=== PATIENT | female | born 1980 | race Caucasian/White ===

== ENCOUNTER 2016-12-20 16:09 | Emergency (ER) | payer MEDICAID, OTHER ==
[~2016-12-20] VITALS: Ht 152.4 cm; Wt 58.5 kg
[~2016-12-20 16:09] MED LIST: ACET325T33 PO; HYDR-3498 PO
[2016-12-20 16:14] VITALS: Ht 152.4 cm; Wt 58.5 kg
[2016-12-20 18:56] LABS: ADD SCAN DIFF NO
[2016-12-20 18:58] LABS: BASOPHILS % 0.4 % (0.0-2.0); EOSINOPHILS # 0.1 10^3/ul (0.0-0.5); HEMATOCRIT 37.6 % (37.0-47.0); HEMOGLOBIN 12.7 g/dl (12.0-16.0); LYMPHOCYTES # 1.8 10^3/ul (0.8-2.9); LYMPHOCYTES % 18.6 % (15.0-51.0); MEAN CORPUSCULAR HEMOGLOBIN 29.3 pg (29.0-33.0); MEAN CORPUSCULAR HGB CONC 33.8 g/dl (32.0-37.0); MEAN CORPUSCULAR VOLUME 86.6 fl (82.0-101.0); MEAN PLATELET VOLUME 11.4 fl (7.4-10.4); MONOCYTE # 0.7 10^3/ul (0.3-0.9); NEUTROPHIL # 7.2 10^3/ul (1.6-7.5); NEUTROPHILS % 72.7 % (39.0-77.0); PLATELET COUNT 249 10^3/UL (140-415); RED BLOOD COUNT 4.34 10^6/ul (4.20-5.40); RED CELL DISTRIBUTION WIDTH 13.1 % (11.5-14.5); WHITE BLOOD COUNT 9.9 10^3/ul (4.8-10.8)
--- NOTE | 2016-12-20 19:03 | RADRPT ---
PROCEDURE: OBSTETRICAL ULTRASOUND WITH ENDOVAGINAL IMAGES CLINICAL INDICATION: Vaginal Bleed () TECHNIQUE: Multiple sonographic images of the pelvis were obtained utilizing a transabdominal and endovaginal technique. The images were reviewed on a PACS workstation. COMPARISON: None LMP: 10/27/2016 FINDINGS: There is a single live intrauterine with heart rate of 165 beats per minute, mean sa c diameter of 2.51 cm, yolk sac, and crown-rump length of 1.14 cm which is consistent with a gestati onal age of 7 weeks, 3 days . The estimated date of delivery by ultrasound is 08/05/2017 . The estimated gestational age by LMP is 7 weeks, 5 days . The estimated date of delivery by LMP is 08/03/2017 . The right ovary is not visualized. The left ovary measures 3.0 x 1.8 x 2.0 cm. There is normal vascu lar flow in the left ovary. No significant ovarian lesions are seen. No significant pelvic free fluid is identified. IMPRESSION: Single live intrauterine consistent with a gestational age of 7 weeks, 3 days . The estimated date of delivery is 08/05/2017 . Dating by ultrasound is within 2 days of dating by LMP. No subchorionic hemorrhage is identified. Nonvisualization of the right ovary. RPTAT: EE Physician Isaac Date Time Electronically viewed and signed by Physician Isaac on 12/20/2016 19:03 /
[2016-12-20 19:34] LABS: ADD UMIC YES; UR ASCORBIC ACID NEGATIVE (NEGATIVE); UR BACTERIA MANY /HPF (NONE SEEN); UR BILIRUBIN (Dip) NEGATIVE (NEGATIVE); UR BLOOD (Dip) 2+ mg/dL (NEGATIVE); UR CLARITY SLIGHTLY CLOUDY (CLEAR); UR COLOR STRAW (YELLOW); UR GLUCOSE (Dip) NEGATIVE (NEGATIVE); UR KETONES (Dip) NEGATIVE (NEGATIVE); UR LEUKOCYTE ESTERASE (Dip) TRACE Leu/ul (NEGATIVE); UR NITRITE (Dip) NEGATIVE (NEGATIVE); UR RBC 0 /HPF (0-5); UR SPECIFIC GRAVITY (Dip) 1.006 (1.003-1.030); UR SQUAMOUS EPITHELIAL CELL FEW /HPF (FEW); UR TOTAL PROTEIN (Dip) NEGATIVE (NEGATIVE); UR UROBILINOGEN (Dip) NEGATIVE (NEGATIVE)
[2016-12-20] MEDS ORDERED: CEPHALEXIN 500 MG CAP PO STA (20:07)
[2016-12-20] MEDS ORDERED: CEPH-443 PO (20:08)
--- NOTE | 2016-12-21 00:50 | ERD ---
ER Documentation Chief Complaint Date/Time DATE: 12/21/16 TIME: 00:45 Chief Complaint VAG BLEED , 7 WEEKS PREG HPI This is a 36-year-old female A2 miscarriages states that she is 7 weeks last menstrual period October 27 stating that she has mild vaginal bleeding that started today when she wipes. She admits to mild pelvic pain. She denies any fevers, dysuria, nausea, vomiting or diarrhea. ROS All systems reviewed and are negative except as per history of present illness. Medications Home Meds Active Scripts Cephalexin* (Keflex*) 500 Mg Capsule, 500 MG PO TID for 7 Days, CAP Prov:BAILEY CASON PA-C 12/20/16 Hydrocodone Bit-Acetaminophen* ([place]*) 5-325 Mg Tab, 1 TAB PO Q6 Y for PAIN, # 10 TAB Prov:DELON MEJÍA PA-C 10/31/15 Acetaminophen* (Tylenol*) 325 Mg Tablet, 1 TAB PO Q6 Y for PAIN AND OR ELEVATED TEMP, #20 TAB Prov:AMAURI SAMUEL PA-C 10/11/15 Allergies Allergies: Coded Allergies: No Known Allergy (Verified Allergy, Unknown, 07/14/08) PMhx/Soc Medical and Surgical Hx: pt denies Medical Hx, pt denies Surgical Hx History of Surgery: No Anesthesia Reaction: No Hx Neurological Disorder: No Hx Respiratory Disorders: No Hx Cardiac Disorders: No Hx Psychiatric Problems: No Hx Miscellaneous Medical Probl: No Hx Alcohol Use: No Hx Substance Use: No Hx Tobacco Use: No Smoking Status: Never smoker Physical Exam Vitals Vital Signs Date Time Temp Pulse Resp B/P Pulse Ox O2 Delivery O2 Flow Rate FiO2 12/20/16 16:14 98.1 68 18 118/65 98 Physical Exam General: well-developed/well-nourished, in no apparent distress, non-toxic appearing HENT: NC/AT Eyes: Conjunctiva normal Neck: Supple Pulm: CTA bilaterally, normal breathing CV: Normal S1S2 GI: Soft, non-distended, normal bowel sounds, TTP on suprapubic region Back: No midline tenderness, no masses, No CVAT Ext: No clubbing, cyanosis, or edema Neuro: Alert and orientated Skin: intact, normal turgor Psych: Normal mood and mentation Result Diagram: 12/20/16 1846 Results 24 hrs Laboratory Tests Test 12/20/16 18:46 White Blood Count 9.910^3/ul Red Blood Count 4.3410^6/ul Hemoglobin 12.7g/dl Hematocrit 37.6% Mean Corpuscular Volume 86.6fl Mean Corpuscular Hemoglobin 29.3pg Mean Corpuscular Hemoglobin Concent 33.8g/dl Red Cell Distribution Width 13.1% Platelet Count 73694^3/UL Mean Platelet Volume 11.4fl Neutrophils % 72.7% Lymphocytes % 18.6% Monocytes % 7.0% Eosinophils % 1.0% Basophils % 0.4% Nucleated Red Blood Cells % 0.0/100WBC Neutrophils # 7.210^3/ul Lymphocytes # 1.810^3/ul Monocytes # 0.710^3/ul Eosinophils # 0.110^3/ul Basophils # 0.010^3/ul Nucleated Red Blood Cells # 0.010^3/ul Urine Color STRAW Urine Clarity SLIGHTLY CLOUDY Urine pH 8.0 Urine Specific [place] 1.006 Urine Ketones NEGATIVEmg/dL Urine Nitrite NEGATIVEmg/dL Urine Bilirubin NEGATIVEmg/dL Urine Urobilinogen NEGATIVEmg/dL Urine Leukocyte Esterase TRACELeu/ul Urine Microscopic RBC 0/HPF Urine Microscopic WBC 4/HPF Urine Squamous Epithelial Cells FEW/HPF Urine Bacteria MANY/HPF Urine Hemoglobin 2+mg/dL Urine Glucose NEGATIVEmg/dL Urine Total Protein NEGATIVEmg/dl Beta HCG, Quantitative 657806.0mIU/ml Current Medications Medications (Trade) Dose Ordered Sig/[place] Route PRN Reason Start Time Stop Time Status Last Admin Dose Admin Cephalexin (Keflex) 500 mg ONCE STAT PO 12/20/16 20:07 12/20/16 20:08 DC 12/20/16 20:12 Procedures/MDM This is a 36-year-old female who is A2 miscarriages sitting at 7 weeks last menstrual period October 27 stating that she has mild vaginal bleeding that started today with mild pelvic pain likely due to a urinary tract infection. Lab work was done in the ED, there is no evidence of leukocytosis or anemia. Patient's beta-hCG level was within normal limits. Urinalysis was positive for urinary tract infection. Patient was given Keflex in the ED and a prescription for outpatient. OB ultrasound was done and radiologist stated Single live intrauterine consistent with a gestational age of 7 weeks , 3 days . The estimated date of delivery is 08/05/2017 . Dating by ultrasound is within 2 days of dating by LMP. No subchorionic hemorrhage is identified. Nonvisualization of the right ovary. Patient stable to be discharged home to follow-up with primary care physician and TEXTILE MACHINE OPERATOR. Discussed return the ER for any worsening symptoms. She understands and agrees with plan Departure Diagnosis: Primary Impression: Vaginal bleeding in patient at less than 20 weeks ges... Additional Impression: UTI (urinary tract infection) during Condition: Stable Patient Instructions: Understanding Urinary Tract Infections (UTIs), Bleeding During Early Additional Instructions: FOLLOW UP WITH YOUR PRIMARY CARE PHYSICIAN TOMORROW.Return to this facility if you are not improving as expected. Take all medicines as directed. Return to this facility if you are not improving as expected. BAILEY CASON PA-C Dec 21, 2016 00:50
== END 2016-12-20 20:23 | disposition home or self-care (01) ==
LOC: FTE 16:09
DX: O20.9 Hemorrhage in early pregnancy, unspecified (principal); O23.41 Unspecified infection of urinary tract in pregnancy, first trimester; R10.2 Pelvic and perineal pain; Z3A.01 Less than 8 weeks gestation of pregnancy
CPT/HCPCS: 36415; 76801; 81001; 84702; 85025; 86900; 86901

== ENCOUNTER 2017-01-29 09:42 | Emergency (ER) | payer OTHER ==
[~2017-01-29] VITALS: Ht 152.4 cm; Wt 59.0 kg
[~2017-01-29 09:42] MED LIST changes: +ACET500C5 PO; +CEPH-443 PO; +PRENAT PO
[2017-01-29 09:52] VITALS: Ht 152.4 cm; Wt 59.0 kg
[2017-01-29 12:13] LABS: BASOPHILS % 0.4 % (0.0-2.0); EOSINOPHILS # 0.1 10^3/ul (0.0-0.5); EOSINOPHILS % 0.9 % (0.0-7.0); HEMATOCRIT 32.3 % (37.0-47.0); HEMOGLOBIN 11.1 g/dl (12.0-16.0); LYMPHOCYTES # 1.7 10^3/ul (0.8-2.9); LYMPHOCYTES % 15.3 % (15.0-51.0); MEAN CORPUSCULAR HEMOGLOBIN 29.5 pg (29.0-33.0); MEAN CORPUSCULAR HGB CONC 34.4 g/dl (32.0-37.0); MEAN CORPUSCULAR VOLUME 85.9 fl (82.0-101.0); MEAN PLATELET VOLUME 11.5 fl (7.4-10.4); MONOCYTE # 0.8 10^3/ul (0.3-0.9); MONOCYTES % 7.6 % (0.0-11.0); NEUTROPHILS % 75.3 % (39.0-77.0); PLATELET COUNT 238 10^3/UL (140-415); RED BLOOD COUNT 3.76 10^6/ul (4.20-5.40); RED CELL DISTRIBUTION WIDTH 13.2 % (11.5-14.5); WHITE BLOOD COUNT 11.1 10^3/ul (4.8-10.8)
--- NOTE | 2017-01-29 12:13 | ERA ---
ER Documentation Chief Complaint Date/Time DATE: 01/29/17 TIME: 12:08 Chief Complaint 14 WEEKS PREG, VAG BLEEDING, LOWER PELVIC PAIN HPI This is an otherwise healthy 36-year-old female, , who is a 13 weeks presenting with a chief complaint of vaginal bleeding 12 hours. Patient has 2 spontaneous abortions in the past. Patient denies any pain, fever , chills, discomfort. Quantifies of bleeding as if she coughs without chunks. Had similar symptoms 2 weeks ago was evaluated by SLEEVE PRESSER OPERATOR and stated that there was some blood on the ultrasound but nothing to be concerned of. Patient has no other complaints and describes no other associated manifestations. Nursing notes have been reviewed and are consistent with history given. No other complications with . ROS All systems reviewed and are negative except as per history of present illness. Medications Home Meds Active Scripts Multivit/Min/Fol Ac/Iron/Pren* ( S*) 1 Tab Tab, 1 TAB PO DAILY, #30 TAB Prov:HAYLEE SHAWAR F 01/22/17 Cephalexin* (Keflex*) 500 Mg Capsule, 500 MG PO TID for 7 Days, CAP Prov:PASILABAN,HAYLEEAR F 01/22/17 Acetaminophen* (Tylophen*) 500 Mg Capsule, 1 CAP PO Q6H Y for PAIN AND OR ELEVATED TEMP, #20 CAP Prov:PASILABANHAYLEEAR F 01/22/17 Cephalexin* (Keflex*) 500 Mg Capsule, 500 MG PO TID for 7 Days, CAP Prov:BAILEY CASON PA-C 12/20/16 Hydrocodone Bit-Acetaminophen* ([place]*) 5-325 Mg Tab, 1 TAB PO Q6 Y for PAIN, # 10 TAB Prov:DELON MEJÍA PA-C 10/31/15 Acetaminophen* (Tylenol*) 325 Mg Tablet, 1 TAB PO Q6 Y for PAIN AND OR ELEVATED TEMP, #20 TAB Prov:AMAURI SAMUEL PA-C 10/11/15 Allergies Allergies: Coded Allergies: No Known Allergy (Verified , 01/21/17) PMhx/Soc Medical and Surgical Hx: pt denies Medical Hx, pt denies Surgical Hx History of Surgery: No Anesthesia Reaction: No Hx Neurological Disorder: No Hx Respiratory Disorders: No Hx Cardiac Disorders: No Hx Psychiatric Problems: No Hx Miscellaneous Medical Probl: No Hx Alcohol Use: No Hx Substance Use: No Hx Tobacco Use: No Smoking Status: Never smoker Physical Exam Vitals Vital Signs Date Time Temp Pulse Resp B/P Pulse Ox O2 Delivery O2 Flow Rate FiO2 01/29/17 09:52 98.2 77 16 113/57 99 Physical Exam Const: Well-appearing 36-year-old female no acute distress Head: Atraumatic Eyes: Normal Conjunctiva ENT: Normal External Ears, Nose and Mouth. Neck: Full range of motion..~ No meningismus. Resp: Clear to auscultation bilaterally Cardio: Regular rate and rhythm, no murmurs Abd: Fetus unable to be palpated.Soft, non tender, non distended. Normal bowel sounds Skin: No petechiae or rashes Back: No midline or flank tenderness Ext: No cyanosis, or edema Neur: Awake and alert Psych: Normal Mood and Affect Result Diagram: 01/29/17 1138 01/29/17 1138 Results 24 hrs Laboratory Tests Test 01/29/17 11:36 01/29/17 11:38 Urine Color YELLOW Urine Clarity CLOUDY Urine pH 6.0 Urine Specific [place] 1.021 Urine Ketones NEGATIVEmg/dL Urine Nitrite NEGATIVEmg/dL Urine Bilirubin NEGATIVEmg/dL Urine Urobilinogen NEGATIVEmg/dL Urine Leukocyte Esterase NEGATIVELeu/ul Urine Microscopic RBC 13/HPF Urine Microscopic WBC 12/HPF Urine Squamous Epithelial Cells FEW/HPF Urine Amorphous Crystals FEW/HPF Urine Bacteria FEW/HPF Urine Mucus FEW/HPF Urine Hemoglobin 3+mg/dL Urine Glucose NEGATIVEmg/dL Urine Total Protein 1+mg/dl White Blood Count 11.110^3/ul Red Blood Count 3.7610^6/ul Hemoglobin 11.1g/dl Hematocrit 32.3% Mean Corpuscular Volume 85.9fl Mean Corpuscular Hemoglobin 29.5pg Mean Corpuscular Hemoglobin Concent 34.4g/dl Red Cell Distribution Width 13.2% Platelet Count 89576^3/UL Mean Platelet Volume 11.5fl Neutrophils % 75.3% Lymphocytes % 15.3% Monocytes % 7.6% Eosinophils % 0.9% Basophils % 0.4% Nucleated Red Blood Cells % 0.0/100WBC Neutrophils # (Manual) 8.410^3/ul Lymphocytes # 1.710^3/ul Monocytes # 0.810^3/ul Eosinophils # 0.110^3/ul Basophils # 0.010^3/ul Nucleated Red Blood Cells # 0.010^3/ul Sodium Level 139mmol/L Potassium Level 3.8mmol/L Chloride Level 101mmol/L Carbon Dioxide Level 24mmol/L Anion Gap 18 Blood Urea Nitrogen 10mg/dl Creatinine 0.54mg/dl Glucose Level 69mg/dl Calcium Level 9.3mg/dl Beta HCG, Quantitative 09914.0mIU/ml Procedures/MDM 36-year-old female presenting with vaginal bleeding starting today as described in history and physical examination. Labs were obtained and resulted in the following: Urinalysis: Cloudy, 13 red blood cells, 12 white blood cells, few amorphous crystals, few bacteria, few mucus, 3+ hemoglobin, 1+ protein. Beta-hCG: Within normal limits All other tests were unremarkable. Ultrasound was obtained read by the radiologist given the following impression: Single viable intrauterine gestation of approximately 13 weeks, 6 days . The estimated date of delivery is 07/31/2017 . Dating by ultrasound is within 3 days of dating by LMP. The placenta is posterior and there is a pocket of fluid measuring 3.4 x 2.1 cm which appears to be separate from posterior to the placenta. This may be a retroplacental abruption. Ultrasound contacted me stating that there could be a possible retroplacental abruption. I then contacted labor arrest decorator consultant around [phone]. Labor is decorator consultant advised me that there is nothing that they can do about this and it is a situation that they have to follow-up outpatient since the patient is only 13 weeks and 6 days . Patient's urine results were consistent with possible asymptomatic urinary tract infection that will be treated with Macrobid 100 mg p.o. 10 days. At this time I very little suspicion for spontaneous , anemia, or acute abdomen. I have recommended that the patient follow-up with SLEEVE PRESSER OPERATOR in 2 days as per SLEEVE PRESSER OPERATOR suggestion. Labs and imaging results have been handed to the patient. Patient's vitals are stable and her current condition is appropriate for discharge. Patient will be discharged with discharge instructions return precautions. Discharge medications: Macrobid 100 mg p.o. 10 days Departure Diagnosis: Primary Impression: Vaginal bleeding in patient at less than 20 weeks gestation Additional Impression: UTI (urinary tract infection) during Qualified Code: O23.42 - Urinary tract infection in mother during second trimester of Condition: Stable Additional Instructions: Follow up with your SLEEVE PRESSER OPERATOR in 2 days. Be sure to take todays test results ( provided within this packet) with you to your appointment. If you do not have an SLEEVE PRESSER OPERATOR, a handout of locations with contact information will be provided to you. Follow all the recommendations we have previously discussed and the following written recommendations: If symptoms change or worsen, return to the emergency department immediately. Do not put anything in your vagina. Do not have sex, douche, or use tampons; these actions may increase your risk for infection and miscarriage. Rest as directed. Do not exercise or engage in strenuous activities; such activities may cause labor or miscarriage. If you have any further questions, ask before you leave the hospital, or contact the medical provider managing your . SILVIA COTTON PA-C Jan 29, 2017 12:13
[2017-01-29 12:18] LABS: CALCIUM 9.3 mg/dl (8.4-10.2); CREATININE 0.54 mg/dl (0.44-1.00); POTASSIUM 3.8 mmol/L (3.5-5.1)
--- NOTE | 2017-01-29 12:36 | RADRPT ---
PROCEDURE: Obstetrical ultrasound CLINICAL INDICATION: Vaginal Bleed () TECHNIQUE: Multiple sonographic images of the pelvis were obtained. The images were reviewed on a PACS workstation. COMPARISON: Obstetrical ultrasound from 01/21/2017 LMP: 10/17/2016 FINDINGS: The cervix is not well visualized. There is a single viable intrauterine gestation. Cardiac activity is present with 143 beats per minute. There is a vertex presentation. The placenta is posterior. There is no evidence for a placenta previa. A pocket of fluid measuring 3 .4 x 2.1 cm is identified in the endocervical canal, separate from the gestational sac and placenta. This was not noted on the prior ultrasound study from 01/21/2017 There is a normal amount of amniotic fluid with the maximum vertical pocket of 3.1 cm. Measurements were made in order to determine age. The results are as follows (cm): BPD =2.40 HC =9.27 AC =7.80 FL =0.99 Estimated gestational age by ultrasound of approximately 13 weeks, 6 days. The estimated date of delivery by ultrasound is 07/31/2017. Estimated gestational age by LMP of approximately 13 weeks, 3 days. The estimated date of delivery by LMP is 08/03/2017. EFW = 80 grams (45th percentile) Bilateral ovaries are not visualized. There are no abnormal adnexal masses. IMPRESSION: Single viable intrauterine gestation of approximately 13 weeks, 6 days . The estimated date of delivery is 07/31/2017 . Dating by ultrasound is within 3 days of dating by LMP. The placenta is posterior and there is a pocket of fluid measuring 3.4 x 2.1 cm which appears to be separate from posterior to the placenta. This may be a retroplacental abruption. These findings were discussed with Pancho Alvarado Pa-c (HEYDI) over the phone on 01/29/2017 at 12: 35 PM . RPTAT: EE Physician Isaac Date Time Electronically viewed and signed by Keith Bhakta Physician on 01/29/2017 12:35 /
[2017-01-29 12:49] LABS: ADD UMIC YES; UR AMORPHOUS CRYSTAL FEW /HPF (NONE SEEN); UR ASCORBIC ACID 40 mg/dL (NEGATIVE); UR BACTERIA FEW /HPF (NONE SEEN); UR BILIRUBIN (Dip) NEGATIVE (NEGATIVE); UR BLOOD (Dip) 3+ mg/dL (NEGATIVE); UR CLARITY CLOUDY (CLEAR); UR COLOR YELLOW (YELLOW); UR GLUCOSE (Dip) NEGATIVE (NEGATIVE); UR KETONES (Dip) NEGATIVE (NEGATIVE); UR LEUKOCYTE ESTERASE (Dip) NEGATIVE Leu/ul (NEGATIVE); UR MUCUS FEW /HPF (NONE SEEN); UR NITRITE (Dip) NEGATIVE (NEGATIVE); UR RBC 13 /HPF (0-5); UR SPECIFIC GRAVITY (Dip) 1.021 (1.003-1.030); UR SQUAMOUS EPITHELIAL CELL FEW /HPF (FEW); UR TOTAL PROTEIN (Dip) 1+ mg/dl (NEGATIVE); UR UROBILINOGEN (Dip) NEGATIVE (NEGATIVE)
[2017-01-29] MEDS ORDERED: NITR-58 PO (13:32)
== END 2017-01-29 14:13 | disposition home or self-care (01) ==
LOC: FTE 09:42
DX: O20.9 Hemorrhage in early pregnancy, unspecified (principal); O23.41 Unspecified infection of urinary tract in pregnancy, first trimester; R10.2 Pelvic and perineal pain; Z3A.13 13 weeks gestation of pregnancy
CPT/HCPCS: 76805; 80048; 81001; 84702; 85025; 86900; 86901

== ENCOUNTER 2017-03-27 17:21 | Outpatient (CLI) | payer OTHER ==
[~2017-03-27] VITALS: Ht 152.4 cm; Wt 65.2 kg
[~2017-03-27 17:21] MED LIST changes: +NITR-58 PO
[2017-03-27 17:42] VITALS: Ht 152.4 cm; Wt 65.2 kg
[2017-03-27 17:43] VITALS: BP 105/58; PULSE 94; RESP 18
[2017-03-27 18:29] LABS: BASOPHILS % 0.2 % (0.0-2.0); EOSINOPHILS # 0.2 10^3/ul (0.0-0.5); EOSINOPHILS % 1.7 % (0.0-7.0); HEMATOCRIT 30.9 % (37.0-47.0); HEMOGLOBIN 10.1 g/dl (12.0-16.0); LYMPHOCYTES # 1.4 10^3/ul (0.8-2.9); LYMPHOCYTES % 13.3 % (15.0-51.0); MEAN CORPUSCULAR HEMOGLOBIN 28.5 pg (29.0-33.0); MEAN CORPUSCULAR HGB CONC 32.7 g/dl (32.0-37.0); MEAN PLATELET VOLUME 11.1 fl (7.4-10.4); MONOCYTES % 9.2 % (0.0-11.0); NEUTROPHIL # 7.9 10^3/ul (1.6-7.5); NEUTROPHILS % 75.1 % (39.0-77.0); PLATELET COUNT 248 10^3/UL (140-415); RED BLOOD COUNT 3.55 10^6/ul (4.20-5.40); RED CELL DISTRIBUTION WIDTH 13.2 % (11.5-14.5); WHITE BLOOD COUNT 10.5 10^3/ul (4.8-10.8)
--- NOTE | 2017-03-27 18:38 | RADRPT ---
PROCEDURE: Limited obstetric ultrasound CLINICAL INDICATION: Labor TECHNIQUE: Multiple transverse and longitudinal grayscale images of the pelvis were obtained knott sabdominally and endovaginally.. COMPARISON: same day FINDINGS: There is a single live intrauterine gestation in a transverse presentation to maternal left with a f etal heart rate of 136 bpm. The placenta is posterior and fundal without evidence of an abruption or placenta previa. The cervix is closed and measures 5.0 cm in length. RPTAT: AA IMPRESSION: The cervix is closed and measures 5.0 cm in length. Physician Isaac Date Time Electronically viewed and signed by Physician Isaac on 03/27/2017 18:38 RA/
[2017-03-27 18:43] LABS: ADD UMIC NO; UR ASCORBIC ACID NEGATIVE (NEGATIVE); UR BACTERIA FEW /HPF (NONE SEEN); UR BILIRUBIN (Dip) NEGATIVE (NEGATIVE); UR BLOOD (Dip) NEGATIVE (NEGATIVE); UR CLARITY SLIGHTLY CLOUDY (CLEAR); UR COLOR YELLOW (YELLOW); UR GLUCOSE (Dip) NEGATIVE (NEGATIVE); UR KETONES (Dip) NEGATIVE (NEGATIVE); UR LEUKOCYTE ESTERASE (Dip) NEGATIVE Leu/ul (NEGATIVE); UR NITRITE (Dip) NEGATIVE (NEGATIVE); UR RBC 1 /HPF (0-5); UR SPECIFIC GRAVITY (Dip) 1.019 (1.003-1.030); UR SQUAMOUS EPITHELIAL CELL FEW /HPF (FEW); UR TOTAL PROTEIN (Dip) NEGATIVE (NEGATIVE); UR UROBILINOGEN (Dip) NEGATIVE (NEGATIVE)
[2017-03-27 18:51] LABS: ALBUMIN 3.6 g/dl (3.3-4.9); ALBUMIN/GLOBULIN RATIO 1.16; CREATININE 0.65 mg/dl (0.44-1.00); POTASSIUM 4.3 mmol/L (3.5-5.1); TOTAL PROTEIN 6.7 g/dl (6.1-8.1)
--- NOTE | 2017-03-27 19:13 | TRIAGE ---
OB Triage Datetime Report Generated by CPN: 03/27/2017 19:12 Datetime: 03/27/2017 19:00 Stage of : OB Triage Maternal Assessment Level of Consciousness: Fully Conscious Labor Evaluation Frequency: 0 Monitor Mode: External Resting Tone [place]: Relaxed Heart Rate FHR Baseline Rate: 135 Monitor Mode: External US Variability: Moderate 6-25 bpm Accelerations: AGA Decelerations: AGA Pain Assessment Pain Scale: 0 Pain Goal: 3 Vaginal Exam Membrane Status: Intact Vaginal Bleeding: None Datetime: 03/27/2017 18:33 Monitor Mode: External Monitor Mode: External US Datetime: 03/27/2017 18:00 Stage of : OB Triage Maternal Assessment Level of Consciousness: Fully Conscious Labor Evaluation Frequency: 0 Monitor Mode: External Resting Tone [place]: Relaxed Heart Rate FHR Baseline Rate: 135 Monitor Mode: External US Variability: Moderate 6-25 bpm Accelerations: AGA Decelerations: AGA Category: AGA Pain Assessment Pain Scale: 0 Pain Goal: 3 Vaginal Exam Membrane Status: Intact Vaginal Bleeding: None Datetime: 03/27/2017 17:40 Assessment Type: Triage Maternal Assessment Level of Consciousness: Fully Conscious DTR's/Clonus: DTRs 2+; No Clonus Headache: Denies Blurred Vision: No Respiratory Effort: Unlabored; Regular Rhythm; Equal Expansion Breath Sounds, Left: Clear and Equal Breath Sounds, Right: Clear and Equal Nausea/Vomiting: Denies RUQ Epigastric Pain: Denies Lower Extremities Edema: Bilateral Lower Extremities Degree: 1+ Upper Extremities Edema: None Degree: None Facial Edema: None Fall Risk Assessment History of Falling: (0) No Secondary Diagnosis: (0) No Ambulatory Aid: (0) Bedrest/Nurse Assist IV Therapy: (0) No Gait: (0) Normal/Bedrest/Immobile Mental Status: (0) Oriented to Own Ability Fall Score: 0 Fall Risk Score Definition: No Risk: No action required Datetime: 03/27/2017 17:36 Time of Arrival: 03/27/2017 17:15 EGA: 21.4 Arrived By: Wheelchair Arrived From: Home Chief Complaint: PT HERE C/O UPPER ABD. PAIN THAT LASTED 20 MINS THEN DISAPATED Movement: Present Contractions: Denies/Absent Rupture of Membranes: Denies Vaginal Bleeding: None Vaginal Discharge: Denies Recent Sexual Intercouse: Denies Abdominal Trauma: Not Applicable Patient Complaints: None Time Provider Notified: 03/27/2017 17:48 Provider Notified: MATY Initial Plan: CBC, CMP, AMYLASE, LIPASE, UA, U/S CVL Datetime: 03/27/2017 17:33 Monitor Mode: External Monitor Mode: External US
--- NOTE | 2017-03-27 19:16 | PN ---
Triage Information Date/Time Reason for visit: Abd/pelvic pain Weeks of Gestation 21 weeks /Para Diabetes: none Hypertention: none Objective Vital Signs Date Time Temp Pulse Resp B/P Pulse Ox O2 Delivery O2 Flow Rate FiO2 03/27/17 17:43 98.2 94 18 105/58 99 Room Air Heart Rate: 120's Heart Rate Comments Appropriate for GA Contractions: None Exam Abdomen soft NT Results/Medications Result Diagram: 03/27/17 1730 03/27/17 1730 Results 24 hrs Laboratory Tests Test 03/27/17 17:30 White Blood Count 10.5 Red Blood Count 3.55 L Hemoglobin 10.1 L Hematocrit 30.9 L Mean Corpuscular Volume 87.0 Mean Corpuscular Hemoglobin 28.5 L Mean Corpuscular Hemoglobin Concent 32.7 Red Cell Distribution Width 13.2 Platelet Count 248 Mean Platelet Volume 11.1 H Neutrophils % 75.1 Lymphocytes % 13.3 L Monocytes % 9.2 Eosinophils % 1.7 Basophils % 0.2 Nucleated Red Blood Cells % 0.0 Neutrophils # 7.9 H Lymphocytes # 1.4 Monocytes # 1.0 H Eosinophils # 0.2 Basophils # 0.0 Nucleated Red Blood Cells # 0.0 Urine Color YELLOW Urine Clarity SLIGHTLY CLOUDY A Urine pH 7.0 Urine Specific [place] 1.019 Urine Ketones NEGATIVE Urine Nitrite NEGATIVE Urine Bilirubin NEGATIVE Urine Urobilinogen NEGATIVE Urine Leukocyte Esterase NEGATIVE Urine Microscopic RBC 1 Urine Microscopic WBC 5 Urine Squamous Epithelial Cells FEW Urine Bacteria FEW A Urine Hemoglobin NEGATIVE Urine Glucose NEGATIVE Urine Total Protein NEGATIVE Sodium Level 137 Potassium Level 4.3 Chloride Level 106 Carbon Dioxide Level 24 Anion Gap 11 Blood Urea Nitrogen 13 Creatinine 0.65 Glucose Level 72 Calcium Level 9.0 Total Bilirubin 0.0 L Direct Bilirubin 0.00 Indirect Bilirubin 0.0 Aspartate Amino Transf (AST/SGOT) 22 Alanine Aminotransferase (ALT/SGPT) 33 Alkaline Phosphatase 78 Total Protein 6.7 Albumin 3.6 Globulin 3.10 Albumin/Globulin Ratio 1.16 Amylase Level 127 H Lipase 86 Imaging Results Cervical length 5 cm Disposition: Discharge Assessment/Plan After rest, abdominal pain resolved. D/C home MARTY RUTLEDGE MD Mar 27, 2017 19:16
== END 2017-03-27 19:47 | disposition home or self-care (01) ==
LOC: OBT 17:21 → L-D 17:25 → OBT 19:47
PROVIDERS: ATTEND Obstetrics & Gynecology
DX: O26.892 Other specified pregnancy related conditions, second trimester (principal); Z3A.21 21 weeks gestation of pregnancy; R10.9 Unspecified abdominal pain
CPT/HCPCS: 36415; 76817; 80053; 81001; 82150; 83690; 85025; G0463; 81003

== ENCOUNTER 2017-07-15 01:26 | Inpatient (IN) | END 2017-07-18 18:44 | disposition home or self-care (01) | DRG 766 ==